=== PATIENT | male | born 1990 | race Caucasian/White ===

== ENCOUNTER 2017-10-14 04:26 | Emergency (ER) | payer OTHER ==
[~2017-10-14] VITALS: Ht 175.3 cm; Wt 103.9 kg
[~2017-10-14 04:26] MED LIST: KEFLEX500 MG PO
[2017-10-14 06:00] LABS: HEMATOCRIT 48.8 % (38.0-50.0); MCH 28.2 PG (29.0-34.0); MCHC 33.6 G/DL (30.0-36.0); MEAN PLAT.VOLUME 11.5 uM^3 (9.0-12.4); PLATELET COUNT 206 K/uL (156-360); RBC DIS.WIDTH-CV 12.6 % (11.8-14.6); RBC DIS.WIDTH-SD 38.4 % (39-53); RED BLOOD COUNT 5.81 M/uL (4.00-5.50); WHITE BLOOD COUNT 16.8 K/uL (4.1-10.2)
[2017-10-14 06:13] LABS: CHLORIDE 105 mEq/L (99-109); POTASSIUM 3.9 mEq/L (3.7-5.4); SODIUM 140 mEq/L (136-147)
[2017-10-14 06:15] LABS: GLUCOSE 148 mg/dL (70-99)
[2017-10-14 06:17] LABS: ANION GAP 11 MEQ/L (2-14); TOTAL BILIRUBIN 0.6 mg/dL (0.0-1.0)
[2017-10-14 06:19] LABS: ALKALINE PHOSPHATASE 64 IU/L (3-129); GFR ESTIMATE (CALCULATED) > 59 mL/min/ (58.99-99999)
[2017-10-14 06:20] LABS: UREA NITROGEN (BUN) 22 mg/dL (9-23)
[2017-10-14 07:29] LABS: ADD MIUA? NO; BILIRUBIN NEGATIVE; BLOOD NEGATIVE; COLOR YELLOW ((YELLOW)); GLUCOSE (STRIP) NEGATIVE; KETONES NEGATIVE; LEUKOCYTES NEGATIVE; NITRITE NEGATIVE; PROTEIN (STRIP) NEGATIVE; UCUL ADDED? NO; UROBILINOGEN 0.2 MG/DL (0.2-1.0)
[2017-10-14 07:50] LABS: SPECIFIC GRAVITY 1.062 (1.000-1.030)
[2017-10-14] MEDS ORDERED: BENTYL20 MG PO (08:41)
[2017-10-14] MEDS ORDERED: ZOFRAN4 MG PO (08:41)
[2017-10-14] MEDS ORDERED: IMODIUM A-D2 M2 PO (08:41)
[2017-10-14 09:17] VITALS: BP 121/65
== END 2017-10-14 09:17 | disposition home or self-care (01) ==
LOC: EME 04:26
DX: A08.4 Viral intestinal infection, unspecified (principal); R51 Headache; F17.200 Nicotine dependence, unspecified, uncomplicated
CPT/HCPCS: 70470; 74177; 80053; 81003; 85027; 99281; 99284; J2405; J2765; J7030